=== PATIENT | male | born 1985 | race American Indian/Alaskan Native ===

== ENCOUNTER 2021-11-27 20:00 | Emergency (ER) | payer OTHER ==
[~2021-11-27] VITALS: Ht 154.9 cm; Wt 84.1 kg
[2021-11-27 20:02] VITALS: BP 140/90
== END 2021-11-27 20:39 ==
LOC: ER 20:01
DX: S20.112A Abrasion of breast, left breast, initial encounter (principal); N64.4 Mastodynia; Z72.89 Other problems related to lifestyle; V49.9XXA Car occupant (driver) (passenger) injured in unspecified traffic accident, initial encounter; Y93.89 Activity, other specified; Y92.89 Other specified places as the place of occurrence of the external cause; Y99.8 Other external cause status
CPT/HCPCS: 99283